=== PATIENT | female | born 1980 | race Caucasian/White ===

== ENCOUNTER → 2017-03-01 | Outpatient (CLI) | payer OTHER ==
[2017-03-02 09:32] LABS: Hepatitis B Surface Antibody Negative
== END | disposition home or self-care (01) ==
LOC: LAB 10:24
PROVIDERS: ATTEND Preventive Medicine Preventive Medicine/Occupational Environmental Medicine
DX: Z02.1 Encounter for pre-employment examination (principal)
CPT/HCPCS: 36415; 81025; 86703; 86706; 86803; 87340; 87591

== ENCOUNTER → 2017-03-16 | Outpatient (CLI) | payer OTHER | END | disposition home or self-care (01) | LOC: LAB 16:19 | PROVIDERS: ATTEND Obstetrics & Gynecology | DX: Z34.80 Encounter for supervision of other normal pregnancy, unspecified trimester (principal); Z20.2 Contact with and (suspected) exposure to infections with a predominantly sexual mode of transmission; N39.0 Urinary tract infection, site not specified | CPT/HCPCS: 87086 ==